=== PATIENT | male | born 1990 | race Caucasian/White ===

== ENCOUNTER 2016-11-10 08:39 | Emergency (ER) | payer OTHER ==
[2016-11-10 09:04] VITALS: BP 136/112; PULSE 100; RESP 18; TEMP 99.5; O2SAT 92
--- NOTE | 2016-11-10 09:17 | UCPHY ---
H & P Time Seen by Provider: 11/10/16 08:59 Patient Type: New HPI/ROS: CHIEF COMPLAINT: Cough HISTORY OF PRESENT ILLNESS: 25-year-old male reports that about a month ago he had influenza-like illness for 5 days of body aches, fever, cough, upper respiratory infections. Those symptoms resolved but the patient was left with a residual cough. He reports coughing mostly at night. No production of sputum. Patient was exposed to an individual who was chain smoking yesterday and feels that the smoke exposure may have triggered a recurrence of his coughing. He presents with a frequent hacky, wheezy cough. No fever. No sputum production. No history of asthma. No seasonal allergies or environmental allergies. No chest pain or shortness of breath. No palpitations. Does report some diarrhea this morning. No urinary complaints. No headache. REVIEW OF SYSTEMS: Aside from elements discussed in the HPI, a comprehensive 10-point review of systems was reviewed and is negative. PAST MEDICAL HISTORY: Denies. Nonsmoker. SOCIAL HISTORY: Works in law enforcement. VITAL SIGNS: see nurse's notes. GENERAL: Well-developed, well-nourished, in no acute distress. Occasional wheezy cough. HEENT: Atraumatic Eyes: PERRL, EOMI, no conjunctival injection. Ears: TM clear bilaterally. Nose: No discharge. Mouth: moist mucous membranes. Pharynx: no erythema, no exudates, no swelling, no abscess. Uvula is midline. NECK: Supple, no adenopathy, no meningismus, no tenderness. Negative Kernig's and Brudzinski's. LUNGS: somewhat diminished. Deep breaths trigger coughing. CARDIAC: Regular rate and rhythm, no rubs, murmurs or gallops. ABDOMEN: Soft, mild left upper quadrant tenderness to deep palpation. Secondary to coughing?. Normal bowel sounds. No guarding or rebound. BACK: No CVA tenderness. EXTREMITIES: Normal, no edema, FROM. NEURO: Alert and oriented, grossly nonfocal. SKIN: Warm and dry, no rash. PSYCHIATRIC: Normal mentation, no agitation. Smoking Status: Never smoked Constitutional: Initial Vital Signs Temperature (C) 37.5 C 11/10/16 08:57 Heart Rate 100 11/10/16 08:57 Respiratory Rate 18 11/10/16 08:57 Blood Pressure 136/112 H 11/10/16 08:57 O2 Sat (%) 92 11/10/16 08:57 O2 Delivery Mode Room Air Allergies/Adverse Reactions: No Known Allergies Allergy (Unverified 11/10/16 08:56) Home Medications: Medication Instructions Recorded AZITHROMYCIN [Z-PACK] 250 - 500 mg PO DAILY #6 tab 11/10/16 Albuterol Hfa Anes Only [Proair 2 puffs IH QID #1 mdi 11/10/16 Hfa Icu (*)] Benzonatate [Tessalon Pearles (RX)] 100 mg PO TID PRN #20 cap 11/10/16 predniSONE 40 mg PO DAILY #4 tab 11/10/16 Medical Decision Making ED Course/Re-evaluation: Albuterol nebulizer treatment administered in the emergency department. Prednisone 40 mg given. Will discharge with meter dose inhaler as well as short course of prednisone. Patient was also given a prescription for Tessalon Perles for cough. Differential Diagnosis: Differential diagnosis for the patient's cough was considered including but not limited to viral versus bacterial bronchitis, asthma, COPD, pulmonary emboli, upper respiratory infection, lower respiratory infection, and bronchospasm. - Data Points Medications Given: Discontinued Medications Albuterol (Proventil Neb) 3 ml IH EDNOW ONE Stop: 11/10/16 09:19 Last Admin: 11/10/16 09:39 Dose: 3 ml Prednisone (Prednisone) 40 mg PO EDNOW ONE Stop: 11/10/16 09:19 Last Admin: 11/10/16 09:40 Dose: 40 mg Departure - Departure Disposition: Home, Routine, Self-Care Clinical Impression: Bronchospasm with bronchitis, acute Condition: Good Instructions: Chronic Cough (ED), Bronchospasm (ED) Additional Instructions: Please use the metered dose inhaler to help control your coughing and wheezing and shortness of breath. You been given a prescription of prednisone. Please take this as directed for the next 2 days starting tomorrow. You been given a prescription for Tessalon Perles to use to control your cough. Please use Tylenol or ibuprofen as needed for any sore throat. If you continue to worsen, especially if you develops a productive cough, fever , vomiting, unable to sleep secondary to cough, you may start taking the azithromycin antibiotic. Seek care urgently or follow up at the emergency department if he develop a fever, worsening symptoms despite the above treatment, shortness of breath, chest pain, vomiting, or other concerns.You been given a prescription of azithromycin. Please begin taking this as directed. Referrals: Raymundo Ji MD [Primary Care Provider] - As per Instructions Stand Alone Forms: Work Excuse Prescriptions: Albuterol Hfa Anes Only [Proair Hfa Icu (*)] 2 puffs IH QID #1 mdi AZITHROMYCIN [Z-PACK] 250 - 500 mg PO DAILY #6 tab Benzonatate [Tessalon Pearles (RX)] 100 mg PO TID PRN #20 cap PRN Reason: Cough predniSONE 40 mg PO DAILY #4 tab - PQRS PQRS Measurement: Not applicable
[2016-11-10] MEDS ORDERED: ALBUTEROL 3 ML DEYVIAL IH ONE (09:18)
[2016-11-10] MEDS ORDERED: predniSONE 20 MG TAB PO ONE (09:18)
== END 2016-11-10 09:58 | disposition home or self-care (01) ==
LOC: CED 08:39
DX: J20.9 Acute bronchitis, unspecified (principal); Z77.22 Contact with and (suspected) exposure to environmental tobacco smoke (acute) (chronic)
CPT/HCPCS: 99203-PO; G0463-PO